=== PATIENT | female | born 1960 | race Caucasian/White ===

== ENCOUNTER 2017-02-15 14:30 | Emergency (ER) | payer OTHER ==
--- NOTE | 2017-02-15 15:07 | UCPHY ---
H & P Time Seen by Provider: 02/15/17 14:59 Patient Type: Established HPI/ROS: CHIEF COMPLAINT: Headache, palpitations, hypertension. HISTORY OF PRESENT ILLNESS: The patient is a 56-year-old female presenting with hypertension and headache. The patient developed a mild, slow in onset headache yesterday. Her headache has remained constant since onset. She states it is a pounding sensation across the front of her head. She had an episode of palpitations today while in the grocery store. She checked her BP there and noted a Tachycardia of 118 and BP eleveated around 160 systolic. Also, she states she felt faint yesterday while driving, without palpitations. She pulled over for about 10 minutes and her symptoms subsided completley. Her BGL was normal yesterday. Today she developed palpitations. She took her blood pressure at [facility] and found it to be elevated at 168 and then 184 about 30 min later when she was home, admitely nervous. Her heart rate was faster than usual at 116. She felt the palpitations for about 30 minutes. She took an Aspirin today for the palpitations. She denies increased fatigue. No shortness of breath, chest pain, nausea, or diaphoresis. REVIEW OF SYSTEMS: Constitutional: No fever, no chills. Eyes: No discharge No diplopia. ENT: No sore throat. Cardiovascular: No chest pain Respiratory: No cough, shortness of breath, or wheezing. Gastrointestinal: No nausea vomiting or diarrhea. No abdominal pain. Genitourinary: No hematuria or frequency. Musculoskeletal: No back pain. Skin: No rashes. Neurological: Headache. 10 point ROS otherwise negative Past Medical/Surgical History: Type II diabetes, Hypertension. Social History: . Smoking Status: Never smoked Physical Exam: General Appearance: Alert, no distress. Afebrile. Normal phonation. No respiratory distress. obese. Godd color, Skin is dry. Eyes: Pupils equal and round no pallor or injection. No icterus ENT, Mouth: Mucous membranes moist. Pharynx without erythema or exudate. TM Clear. Neck: No adenopathy. Supple. No JVD. Trachea in midline. Respiratory: There are no retractions, lungs are clear to auscultation. Cardiovascular: Regular rate and rhythm, no murmur. Abdomen: Soft and nontender, no masses, bowel sounds normal. Neurological: Ox3. No motor weakness. Sensation intact. Gait nl. Skin: Warm and dry, no rashes. Musculoskeletal: No joint swelling. Extremities: No edema. Homans sign negative. No cords. Psychiatric: Normal affect. Constitutional: Initial Vital Signs Temperature (C) 36.4 C 02/15/17 14:39 Heart Rate 98 02/15/17 14:39 Respiratory Rate 20 02/15/17 14:39 Blood Pressure 157/83 H 02/15/17 14:39 O2 Sat (%) 95 02/15/17 14:39 O2 Delivery Mode Room Air Allergies/Adverse Reactions: erythromycin base Allergy (Verified 02/15/17 14:38) Penicillins Allergy (Verified 02/15/17 14:38) Home Medications: Medication Instructions Recorded Lisinopril Unk Dose 05/01/16 Metformin Unk Dose 05/01/16 Levothyroxine 02/15/17 Medical Decision Making - Diagnostics Imaging: Imaging Impressions Chest X-Ray 02/15/17 15:17 Impression: No acute findings in the chest. Films by me on the PAC system ED Course/Re-evaluation: The patient is a 56-year-old female presenting with headache and palpitations. She developed a headache localized to the front of her head yesterday. She took an Aspirin today but found no relief. She had an episode of near syncope yesterday, this lasted for about 10 minutes and subsided. Today she developed palpitations, she took her blood pressure and had an elevated BP ranging from 160s-180s. Her heart rate was elevated at 116. She did not feel nauseous or diaphoretic. These palpitations lasted for about 30 minutes. The patient was placed on a clinical research monitor. Plan for cardiac workup including labs, chest x-ray , EKG, and troponin. I reviewed the patient's previous EKG. No changes found today. I viewed the X-ray of the chest myself on the PACS system. X-ray shows nothing acute. Please see the full radiology report in the imaging section. Her last chest x-ray past April suggested borderline cardiomegaly. I do not see any change in the interim. Labs are normal. Troponin is normal. 4:55 p.m.: I discussed findings with the patient. HR 90. BP 128/68, spontaneously Plan to discharge home. I instructed the patient to followup with a speed belt sander tender for a stress test, as well as PCP for potential Holter monitoring - Data Points Laboratory Results: Laboratory Results 02/15/17 15:23 02/15/17 15:23 02/15/17 02/15/17 15:23 15:23 WBC 7.51 10^3/uL 10^3/uL (3.80-9.50) RBC 4.60 10^6/uL 10^6/uL (4.18-5.33) Hgb 13.7 g/dL g/dL (12.6-16.3) Hct 41.3 % % (38.0-47.0) MCV 89.8 fL fL (81.5-99.8) MCH 29.8 pg pg (27.9-34.1) MCHC 33.2 g/dL g/dL (32.4-36.7) RDW 13.8 % % (11.5-15.2) Plt Count 258 10^3/uL 10^3/uL (150-400) MPV 10.0 fL fL (8.7-11.7) Neut % (Auto) 66.2 % % (39.3-74.2) Lymph % (Auto) 23.0 % % (15.0-45.0) [place] % (Auto) 7.1 % % (4.5-13.0) Eos % (Auto) 2.8 % % (0.6-7.6) Baso % (Auto) 0.5 % % (0.3-1.7) Nucleat RBC Rel Count 0.0 % % (0.0-0.2) Absolute Neuts (auto) 4.97 10^3/uL 10^3/uL (1.70-6.50) Absolute Lymphs (auto) 1.73 10^3/uL 10^3/uL (1.00-3.00) Absolute Monos (auto) 0.53 10^3/uL 10^3/uL (0.30-0.80) Absolute Eos (auto) 0.21 10^3/uL 10^3/uL (0.03-0.40) Absolute Basos (auto) 0.04 10^3/uL 10^3/uL (0.02-0.10) Absolute Nucleated RBC 0.00 10^3/uL 10^3/uL (0-0.01) Immature Gran % 0.4 % % (0.0-1.1) Immature Gran # 0.03 10^3/uL 10^3/uL (0.00-0.10) Sodium 141 mEq/L mEq/L (134-144) Potassium 4.4 mEq/L mEq/L (3.5-5.2) Chloride 101 mEq/L mEq/L (97-110) Carbon Dioxide 24 mEq/l mEq/l (22-31) Anion Gap 16 mEq/L mEq/L (8-16) BUN 24 mg/dL H mg/dL (7-23) Creatinine 0.7 mg/dL mg/dL (0.6-1.0) Estimated GFR > 60 Glucose 109 mg/dL H mg/dL (70-100) Calcium 10.2 mg/dL mg/dL (8.5-10.4) Magnesium 1.7 mg/dL mg/dL (1.6-2.3) Troponin I < 0.012 ng/mL ng/mL (0-0.034) NT-Pro-B Natriuret Pep 85 pg/mL pg/mL (0-125) Medications Given: Discontinued Medications Sodium Chloride (Ns) 1,000 mls @ 0 mls/hr IV ONCE ONE PRN Reason: As Directed Stop: 02/15/17 15:20 Last Admin: 02/15/17 15:37 Dose: 1,000 mls Departure - Departure Disposition: Home, Routine, Self-Care Clinical Impression: Palpitations Condition: Good Instructions: Palpitations (ED) Additional Instructions: Please do not operate a vehicle until you are seen by your primary care physician. You have been referred to a speed belt sander tender. Please call tomorrow to arrange a followup appointment. Referrals: Nayeli Sanon MD [Primary Care Provider] - As per Instructions Neftali Chavez MD [Medical Doctor] - As per Instructions (Cardiology) - PQRS PQRS Measurement: Not applicable Report Scribed for: Arya Romo Report Scribed by: Layla Robertson Date of Report: 02/15/17 Time of Report: 15:08
[2017-02-15] MEDS ORDERED: NS 1,000 ML IV ONE (15:19)
--- NOTE | 2017-02-15 15:26 | CPEKG ---
Heart Rate: 86 RR Interval: 698 P-R Interval: 132 QRSD Interval: 88 QT Interval: 380 QTC Interval: 455 P Blount: 47 QRS Blount: -33 T Wave Blount: 28 EKG Severity - OTHERWISE NORMAL ECG - EKG Impression: SINUS RHYTHM EKG Impression: LEFT AXIS DEVIATION Electronically Signed By: Arya Romo 16-Feb-2017 00:21:26
[2017-02-15 15:39] LABS: % IMMATURE GRANULYOCYTES 0.4 % (0.0-1.1); ABSOLUTE IMMATURE GRANULOCYTES 0.03 10^3/uL (0.00-0.10); ADD DIFF? NO; ADD MORPH? NO; ADD SCAN? NO; ATYPICAL LYMPHOCYTE FLAG 0 (0-99); FRAGMENT RBC FLAG 0 (0-99); HEMATOCRIT 41.3 % (38.0-47.0); HEMOGLOBIN 13.7 g/dL (12.6-16.3); LEFT SHIFT FLG 0 (0-99); LIPEMIA HEMOLYSIS FLAG 80 (0-99); MEAN CELL HEMOGLOBIN 29.8 pg (27.9-34.1); MEAN CELL HEMOGLOBIN CONCENTR. 33.2 g/dL (32.4-36.7); MEAN CELL VOLUME 89.8 fL (81.5-99.8); PLATELET CLUMPS FLAG 20 (0-99); PLATELET COUNT 258 10^3/uL (150-400); RED CELL DISTRIBUTION WIDTH 13.8 % (11.5-15.2)
[2017-02-15 15:59] LABS: ANION GAP 16 mEq/L (8-16); CALCIUM 10.2 mg/dL (8.5-10.4); CARBON DIOXIDE 24 mEq/l (22-31); CHLORIDE 101 mEq/L (97-110); CREATININE 0.7 mg/dL (0.6-1.0); GLOMERULAR FILTRATION RATE > 60; GLUCOSE 109 mg/dL (70-100); MAGNESIUM 1.7 mg/dL (1.6-2.3); POTASSIUM 4.4 mEq/L (3.5-5.2); SODIUM 141 mEq/L (134-144)
[2017-02-15 16:12] LABS: TROPONIN I < 0.012 ng/mL (0-0.034)
[2017-02-15 17:10] VITALS: BP 137/67; PULSE 85; RESP 18; TEMP 97.9; O2SAT 94
== END 2017-02-15 17:20 | disposition home or self-care (01) ==
LOC: CED 14:30
DX: R00.2 Palpitations (principal); R51 Headache; I10 Essential (primary) hypertension
CPT/HCPCS: 71020-PO; 80048-PO; 83735-PO; 83880-PO; 84484-PO; 85025-PO; 93010-PO; 96360-PO; 99215-PO; G0463-PO

== ENCOUNTER → 2017-08-20 | Outpatient (CLI) | payer OTHER | LOC: CIMAGING 07:21 | PROVIDERS: ATTEND Internal Medicine | DX: R10.2 Pelvic and perineal pain (principal); K59.00 Constipation, unspecified | CPT/HCPCS: 76856-PO ==

== ENCOUNTER → 2017-10-29 | Outpatient (CLI) | payer OTHER | LOC: CIMAGING 09:38 | PROVIDERS: ATTEND Internal Medicine | DX: Z12.31 Encounter for screening mammogram for malignant neoplasm of breast (principal) | CPT/HCPCS: G0202 ==

== ENCOUNTER → 2018-11-01 | Outpatient (CLI) | payer OTHER | LOC: CIMAGING 08:09 | PROVIDERS: ATTEND Internal Medicine | DX: Z12.31 Encounter for screening mammogram for malignant neoplasm of breast (principal) ==